=== PATIENT | female | born 1960 | race Caucasian/White ===

== ENCOUNTER 2022-04-10 16:26 | Emergency (ER) | payer MEDICAID ==
[2022-04-10] VITALS (11 sets, daily range): BP systolic 126–142; BP diastolic 48–72
[2022-04-10] MEDS ORDERED: VICTOZA18 MG/3 ML SC (16:56)
[2022-04-10] MEDS ORDERED: LANTUS100 UNIT SC (16:57)
[2022-04-10] MEDS ORDERED: FOLIC ACID1 MG PO (16:58)
[2022-04-10] MEDS ORDERED: NOVOLOG100 UNIT SC (16:58)
[2022-04-10] MEDS ORDERED: PROTONIX40 M2 PO (16:58)
[2022-04-10] MEDS ORDERED: HYDROXYCHLOR200 MG PO (17:00)
[2022-04-10] MEDS ORDERED: LIPITOR40 M1 PO (17:00)
[2022-04-10] MEDS ORDERED: METHOTREXATE XX (17:00)
[2022-04-10] MEDS ORDERED: TRAZODONE HCL50 MG PO (17:01)
[2022-04-10] MEDS ORDERED: LYRICA50 MG PO (17:01)
[2022-04-10] MEDS ORDERED: CLARITIN10 M1 PO (17:02)
[2022-04-10] MEDS ORDERED: SINGULAIR10 MG PO (17:02)
[2022-04-10] MEDS ORDERED: GEMTESA75 MG PO (17:03)
[2022-04-10] MEDS ORDERED: ZOLOFT25 MG PO (17:05)
[2022-04-10] MEDS ORDERED: CYCLOBENZAPRINE10 MG PO (19:44)
[2022-04-10] MEDS ORDERED: MEDDOSEPAK PO (19:44)
[2022-04-10] MEDS ORDERED: TRAMADOL HYDROC50 M1 PO (19:44)
== END 2022-04-10 20:35 | disposition home or self-care (01) | DRG 866 ==
LOC: ED 16:26
DX: B34.9 Viral infection, unspecified (principal); M54.12 Radiculopathy, cervical region